=== PATIENT | male | born 1965 | race Caucasian/White ===

== ENCOUNTER 2017-01-08 20:11 | Emergency (ER) | payer BC ==
[~2017-01-08] VITALS: Ht 180.3 cm; Wt 112.0 kg
[~2017-01-08 20:11] MED LIST: BUSPAR10 MG PO; CARAFATE1 GM PO; CELEXA40 MG PO; EFFIENT10 MG PO; FLEXERIL10 MG PO; HALFPRIN81 MG PO; HYDROCHLOROTHIA25 MG PO; HYDROCODON-ACE1 EAC4 PO; LIPITOR10 M1 PO; LIPITOR20 MG PO; LOPRESSOR50 MG PO; MORPHINE SULFAT15 MG PO; NAPROSYN500 MG PO; NITROSTAT0.4 MG SL; NORCO 325-5 MG1 TAB PO; NORTRIPTYLINE H10 MG PO; PAMELOR10 MG PO; PERCOCET 325-51 TAB PO; PRINIVIL10 MG PO; PROAIR HFA8.5 GM INH; PROTONIX40 MG PO; SYMBICORT 160-4.6 GM INH; TAMIFLU75 MG PO; THERA M PLUS T1 EACH PO; TOPROL XL25 MG PO
== END 2017-01-08 22:48 | disposition short-term general hospital (02) ==
LOC: ER 20:11
DX: K52.9 Noninfective gastroenteritis and colitis, unspecified (principal); J44.9 Chronic obstructive pulmonary disease, unspecified; I25.10 Atherosclerotic heart disease of native coronary artery without angina pectoris; F32.9 Major depressive disorder, single episode, unspecified; E66.9 Obesity, unspecified; K21.9 Gastro-esophageal reflux disease without esophagitis; E78.5 Hyperlipidemia, unspecified; I10 Essential (primary) hypertension; I73.9 Peripheral vascular disease, unspecified; Z79.899 Other long term (current) drug therapy; Z90.49 Acquired absence of other specified parts of digestive tract; F17.210 Nicotine dependence, cigarettes, uncomplicated

== ENCOUNTER 2017-02-11 14:20 | Emergency (ER) | payer BC ==
[~2017-02-11] VITALS: Ht 180.3 cm; Wt 117.9 kg
[2017-02-11] MEDS ORDERED: LIPITOR20 MG PO (15:30)
[2017-02-11] MEDS ORDERED: NEURONTIN600 MG PO (15:30)
[2017-02-11] MEDS ORDERED: CYMBALTA60 MG PO (15:30)
== END 2017-02-11 15:42 | disposition short-term general hospital (02) ==
LOC: ER 14:20
DX: M54.5 Low back pain (principal); M79.672 Pain in left foot; Z88.0 Allergy status to penicillin; Z88.8 Allergy status to other drugs, medicaments and biological substances; W18.09XA Striking against other object with subsequent fall, initial encounter; Y93.01 Activity, walking, marching and hiking; Y92.096 Garden or yard of other non-institutional residence as the place of occurrence of the external cause; Y99.8 Other external cause status

== ENCOUNTER 2017-03-08 22:07 | Emergency (ER) | payer BC ==
[~2017-03-08] VITALS: Ht 180.3 cm; Wt 108.8 kg
[~2017-03-08 22:07] MED LIST changes: +CYMBALTA60 MG PO; +NEURONTIN600 MG PO
== END 2017-03-09 03:10 ==
LOC: ER 22:07
DX: R07.89 Other chest pain (principal); I25.10 Atherosclerotic heart disease of native coronary artery without angina pectoris; D72.829 Elevated white blood cell count, unspecified; F32.9 Major depressive disorder, single episode, unspecified; I73.9 Peripheral vascular disease, unspecified; F17.210 Nicotine dependence, cigarettes, uncomplicated; Z98.890 Other specified postprocedural states; Z90.89 Acquired absence of other organs; Z79.82 Long term (current) use of aspirin; Z90.49 Acquired absence of other specified parts of digestive tract; Z79.899 Other long term (current) drug therapy
CPT/HCPCS: J1885